=== PATIENT | male | born 2000 | race Caucasian/White ===

== ENCOUNTER 2021-09-23 17:58 | Emergency (ER) | payer SELFPAY ==
[~2021-09-23] VITALS: Ht 172.7 cm; Wt 61.2 kg
[2021-09-23] MEDS ORDERED: KETOROLAC 60 MG/2 ML VIAL IM ONE (18:45)
--- NOTE | 2021-09-23 18:46 | ED Back Pain ---
General Chief Complaint: Back Problems Stated Complaint: LOWER BACK PAIN Nursing Triage Note: PT AMBULATE TO ROOM 06 WITH C/O LEFT LOWER BACK PAIN SINCE WEDNESDAY. PT REPORTS PAIN THAT TRAVELS FROM LOWER BACK DOWN THE LEFT LEG. PT STATES HE GOOGLED HIS SYMPTOMS AND THAT HE BELIEVES HE HAS SCIATICA. Source of Information: Patient Exam Limitations: No Limitations History of Present Illness Date Seen by Provider: September 23, 2021 Time Seen by Provider: 18:19 Initial Comments The patient presents to the ER by private conveyance with back pain that started up again on Wednesday, 2 days prior in his left back radiating down his buttock to just above his left knee. He is not having saddle anesthesia, loss of control of bowel or bladder, weakness numbness or falls. No traumatic inciting event. 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 No prior injury or surgery on his back. He says he is been having episodes of back pain like this although not as severe for the past 1-1/2 months. He has not taken any NSAIDs, Tylenol, topical creams or back brace Allergies and Home Medications Allergies Coded Allergies: Penicillins (Unverified Allergy, Intermediate, UNKNOWN, 08/17/11) Patient Home Medication List Home Medication List Reviewed: Yes Review of Systems Constitutional: No chills, No diaphoresis EENTM: No ear discharge, No ear pain Respiratory: No cough, No short of breath Cardiovascular: No chest pain, No edema Gastrointestinal: No abdominal pain, No nausea, No vomiting Genitourinary: No discharge, No dysuria Musculoskeletal: back pain; No joint pain All Other Systems Reviewed Negative Unless Noted: Yes Past Cbtuuzy-Bkydhe-Fitqih Hx Patient Social History Tobacco Use?: No Smoking Status: Never a Smoker Smokeless Tobacco Frequency: Never a User Use of E-Cig and/or Vaping dev: No Use of E-Cig and/or Vaping Gurvinder: Never a User Substance use?: No Alcohol Use?: No Pt feels they are or have been: No Immunizations Up To Date COVID19 Vaccine Hearing Aid Consultant: MODERNA Past Medical History Reproductive Disorders: No Physical Exam Vital Signs Vital Signs - First Documented 09/23/21 18:13 Temp 36.5 Pulse 81 Resp 17 B/P (MAP) 119/77 (91) O2 Delivery Room Air Capillary Refill : Less Than 3 Seconds Height, Weight, BMI Height: '" Weight: lbs. oz. kg; 20.00 BMI Method:Stated General Appearance: No Apparent Distress, WD/WN HEENT: PERRL/EOMI, Pharynx Normal, Moist Mucous Membranes Neck: Full Range of Motion, Normal Inspection Cardiovascular: Regular Rate, Rhythm, Normal Peripheral Pulses Respiratory: No Accessory Muscle Use, No Respiratory Distress Back: Normal Inspection, No Vertebral Tenderness Extremity: Normal Capillary Refill, Normal Inspection, Normal Range of Motion, Non Tender Neurologic/Psychiatric: Alert, Oriented x3 Skin: Normal Color, Warm/Dry Progress/Results/Core Measures Results/Orders My Orders Orders - JORDAN DONNELLY Ketorolac Injection (Toradol Injection) (09/23/21 18:45) Vital Signs/I&O 09/23/21 18:13 Temp 36.5 Pulse 81 Resp 17 B/P (MAP) 119/77 (91) O2 Delivery Room Air Blood Pressure Mean: 91 Progress Progress Note : Time: 18:43 Progress Note Toradol shot, discussed conservative management. Plan to put him on 40 mg prednisone daily for 5 days, given some muscle relaxants, call to physical therapy and follow-up with primary care if not seeing improvement in 10 to 14 days. Departure Impression Primary Impression: Lumbago with sciatica, left side Qualified Codes: M54.42 - Lumbago with sciatica, left side Disposition: 01 HOME, SELF-CARE Condition: Stable Departure-Patient Inst. Decision time for Depature: 18:44 Referrals: NO,LOCAL PHYSICIAN (PCP/Family) Primary Care Physician Patient Instructions: LOCAL PHYSICIAN LIST, Low Back Pain ED, Sciatica (DC), Sciatica Exercises Add. Discharge Instructions: When lifting heavy objects do not twist your back or turn. Turn with your feet. Lift with your legs. Use topical creams such as icy hot, Biofreeze, Salonpas patches, lidocaine patches etc. as necessary for relief. Wear a back brace on the days that it helps. Tylenol 1000 mg every 8 hours as needed for pain. Choose an NSAID to be used daily for the next 1 to 2 weeks to decrease the inflammation in your back such as ibuprofen or Aleve/naproxen. Ibuprofen 800 mg every 8 hours on a schedule for 1 to 2 weeks. Aleve/naproxen 2 tablets twice a day on schedule for 1 to 2 weeks. Flexeril/cyclobenzaprine 1 tablet every 8 hours as needed for muscle spasms in your low back. You may experience some drowsiness with this medication. Prednisone 40 mg, 2 tablets daily for 5 days to reduce inflammation in your back. Follow-up with [facility] physical therapy if not seeing improvement in 10 to 14 days by calling for an appointment at [phone]. Make an appointment with your primary care provider if not seeing some improvement in 2 weeks. Return to the ER promptly if you are experiencing loss of control of bowel or bladder, inability to stand due to weakness, numbness or tingling in your saddle region. All discharge instructions reviewed with patient and/or family. Voiced understanding. Scripts Prednisone (Prednisone) 20 Mg Tab 40 MG PO DAILY for 5 Days, #10 TAB 0 Refills Prov: JORDAN DONNELLY 09/23/21 Cyclobenzaprine HCl (Cyclobenzaprine HCl) 10 Mg Tablet 5-10 MG PO Q8H PRN for SPASMS, #15 TAB 0 Refills Prov: JORDAN DONNELLY 09/23/21 Work/School Note: Work Release Form Date Seen in the Emergency Department: September 23, 2021 Return to Work: September 26, 2021 Restrictions: Need Release from Doctor Other Restrictions Listed Below: Do not lift/push/pull more than 20 pounds until 10/06/2021. JORDAN DONNELLY September 23, 2021 18:46
[2021-09-23] MEDS ORDERED: PRD20T PO (18:47)
[2021-09-23] MEDS ORDERED: CYCL10TA25 PO (18:47)
[2021-09-23 19:00] VITALS: BP 127/88
== END 2021-09-23 19:00 | disposition home or self-care (01) ==
LOC: EDUNIT# 17:58 → ER 18:03
DX: M54.42 Lumbago with sciatica, left side (principal)
CPT/HCPCS: 99284